=== PATIENT | male | born 1955 | race Caucasian/White ===

== ENCOUNTER 2016-12-04 20:49 | Emergency (ER) | payer BC ==
[2016-12-04 22:10] LABS: HEMOGLOBIN 16.8 gm/dl (14.0-17.5); RED BLOOD COUNT 5.51 M/UL (4.20-5.50); WHITE BLOOD COUNT 6.6 K/UL (4.5-11.0)
[2016-12-04 22:26] LABS: BUN/CREATININE RATIO 19 (0-10)
== END 2016-12-04 22:37 | disposition home or self-care (01) ==
LOC: ER1 20:49
PROVIDERS: Physician Assistant Medical
DX: S40.261A Insect bite (nonvenomous) of right shoulder, initial encounter (principal); Z90.49 Acquired absence of other specified parts of digestive tract; W57.XXXA Bitten or stung by nonvenomous insect and other nonvenomous arthropods, initial encounter
CPT/HCPCS: 36415; 80053; 85025; 86618; 99282